=== PATIENT | female | born 1955 | race Caucasian/White ===

== ENCOUNTER 2019-09-07 14:30 | Inpatient (IN) | payer MEDICARE ==
[~2019-09-07] VITALS: Ht 154.9 cm; Wt 80.1 kg
[2019-09-07] MEDS ORDERED: ONDANSETRON HCL 4 MG/2 ML VIAL ONE ×2 (14:39→19:34)
[2019-09-07 15:19] LABS: BASOPHILS % (AUTO) 0.6 % (0.0-5.0); EOSINOPHILS % (AUTO) 0.1 % (0.0-8.0); HEMATOCRIT 47.9 % (36-48); LYMPHOCYTES % (AUTO) 11.3 % (21.0-51.0); MEAN CORPUSCULAR HEMOGLOBIN 28.1 pg (27.0-33.0); MEAN CORPUSCULAR HGB CONC 32.8 g/dL (32.0-36.0); MEAN CORPUSCULAR VOLUME 85.7 fL (79-99); MONOCYTES % (AUTO) 2.4 % (3.0-13.0); NEUTROPHILS % (AUTO) 85.1 % (40.0-77.0); PLATELET COUNT (AUTO) 273 K/uL (130-400); RED BLOOD CELL COUNT(AUTO) 5.59 MIL/uL (4.00-5.50); WHITE BLOOD COUNT (AUTO) 12.9 K/uL (4.8-10.8)
[2019-09-07 15:33] LABS: ALBUMIN 3.8 g/dL (3.5-5.0); BILIRUBIN,DIRECT 0.1 mg/dL (0.0-0.3); BILIRUBIN,TOTAL 0.6 mg/dL (0.2-1.0); CREATININE 0.8 mg/dL (0.5-1.5); TOTAL PROTEIN, SERUM 8.1 g/dL (6.0-8.3)
[2019-09-07 15:35] LABS: POTASSIUM 2.7 mmol/L (3.5-5.1)
[2019-09-07 18:23] LABS: APPEARANCE,URINE Clear (CLEAR); BILIRUBIN,URINE Negative (NEGATIVE); COLOR,URINE Yellow (YELLOW); GLUCOSE, URINE (UA) Negative (NEGATIVE); KETONES,URINE >=160 mg/dL (NEGATIVE); LEUKOCYTE ESTERASE ,URINE Negative (NEGATIVE); NITRATE,URINE Negative (NEGATIVE); OCCULT BLOOD,URINE Negative (NEGATIVE); PH,URINE 6.5 (5.0-8.0); PROTEIN,URINE Negative (NEGATIVE); UROBILINOGEN,URINE 0.2 mg/dL (0.2-1.0)
[2019-09-07 18:30] LABS: AMPHET/METH SCREEN,URINE NEGATIVE (NEGATIVE); BARBITURATE SCREEN, URINE NEGATIVE (NEGATIVE); BENZODIAZEPINES SCREEN,URINE NEGATIVE (NEGATIVE); CANNABINOID SCREEN,URINE POSITIVE (NEGATIVE); COCAINE SCREEN,URINE NEGATIVE (NEGATIVE); OPIATE SCREEN,URINE NEGATIVE (NEGATIVE); PHENCYCLIDINE SCREEN,URINE NEGATIVE (NEGATIVE)
[2019-09-07 18:46] LABS: BACTERIA,URINE Few /HPF (None Seen); SQUAMOUS EPITHELIAL CELL,UR Few /HPF (0-2)
[2019-09-07] MEDS ORDERED: SODIUM CHLORIDE 0.9% 1000ML 1,000 ML IV ONE (18:56)
[2019-09-07] MEDS ORDERED: POTASSIUM BICARB/CIT AC 25 MEQ TABLET.EFF ONE (19:34)
[2019-09-07] MEDS ORDERED: METRONIDAZOLE 500MG/100ML BAG 100 ML ONE (19:35)
[2019-09-07] MEDS: LEVOFLOXACIN 500 MG/D5W 100 ML 100 ML IV SCH (23:00)
[2019-09-08] VITALS (7 sets, daily range): BP systolic 103–138; BP diastolic 55–93
[2019-09-08] MEDS ORDERED: LEVOFLOXACIN 500 MG/D5W 100 ML 100 ML ONE (00:43)
[2019-09-08] MEDS ORDERED: LIDOCAINE HCL-MPF 1% 2ML VIAL IV PRN (01:30)
[2019-09-08] MEDS ORDERED: POTASSIUM CHLORIDE 10% ELIXIR 20 MEQ/15 ML UDCUP PO PRN (01:30)
[2019-09-08] MEDS ORDERED: SERT50TA PO (01:41)
[2019-09-08] MEDS ORDERED: POTASSIUM CHLORIDE 20 MEQ ERTAB PO ONE (01:43)
[2019-09-08] MEDS: 1/2 NORMAL SALINE 1,000 ML IV SCH ×3 (01:47→17:12)
[2019-09-08] MEDS ORDERED: METRONIDAZOLE 250MG/50ML 50 ML IV SCH (06:00)
[2019-09-08 06:50] LABS: HEMATOCRIT 38.9 % (36-48); MEAN CORPUSCULAR HEMOGLOBIN 29.1 pg (27.0-33.0); MEAN CORPUSCULAR HGB CONC 33.2 g/dL (32.0-36.0); MEAN CORPUSCULAR VOLUME 87.6 fL (79-99); PLATELET COUNT (AUTO) 221 K/uL (130-400); RED BLOOD CELL COUNT(AUTO) 4.44 MIL/uL (4.00-5.50); RED CELL DISTRIBUTION WIDTH 14.2 % (11.0-15.5); WHITE BLOOD COUNT (AUTO) 12.9 K/uL (4.8-10.8)
[2019-09-08] MEDS: ONDANSETRON HCL 4 MG/2 ML VIAL IVP PRN (09:32)
[2019-09-08 09:33] LABS: ALBUMIN 2.8 g/dL (3.5-5.0); CREATININE 0.6 mg/dL (0.5-1.5); TOTAL PROTEIN, SERUM 6.1 g/dL (6.0-8.3)
[2019-09-08] MEDS: ENOXAPARIN SODIUM 40 MG/0.4 ML SYRINGE SQ SCH (09:33)
[2019-09-08] MEDS: METRONIDAZOLE 250MG/50ML 50 ML IV SCH ×3 (09:33→19:55)
[2019-09-08] MEDS: PANTOPRAZOLE 40 MG/VIAL IVP SCH (09:33)
[2019-09-08 09:36] LABS: POTASSIUM 2.6 mmol/L (3.5-5.1)
[2019-09-08] MEDS: POTASSIUM CHLORIDE 20 MEQ ERTAB PO PRN ×4 (09:47→19:55)
[2019-09-08 09:50] LABS: BILIRUBIN,TOTAL 0.4 mg/dL (0.2-1.0)
[2019-09-08] MEDS: POTASSIUM CHLORIDE 20MEQ/100ML 100 ML IV PRN (11:23)
--- NOTE | 2019-09-08 16:03 | NUR ---
cm note met with patient and states resides at home alone, independent with adls and ambulation, no provider. pt drives. dc plan is back to home. sister can assist as needed. Addendum: 09/08/19 at 1609 by JUSTIN FERNANDEZ CM Amended: Links added.
--- NOTE | 2019-09-08 22:00 | NUR ---
Called DR. Castaneda to report pt wants sleeping pill medication with an order to give Ambien 5mg po QHS prn - carried out.
[2019-09-08] MEDS ORDERED: ZOLPIDEM TARTRATE 5 MG TAB ONE (22:10)
[2019-09-08] MEDS: LEVOFLOXACIN 500 MG/D5W 100 ML 100 ML IV SCH (22:11)
[2019-09-08] MEDS ORDERED: ZOLPIDEM TARTRATE 5 MG TAB PO PRN (22:15)
[2019-09-09] MEDS: METRONIDAZOLE 250MG/50ML 50 ML IV SCH ×4 (00:23→20:27)
[2019-09-09] MEDS: 1/2 NORMAL SALINE 1,000 ML IV SCH ×4 (01:01→21:43)
[2019-09-09 04:00] VITALS: BP 129/70
[2019-09-09 05:17] LABS: BASOPHILS % (AUTO) 0.3 % (0.0-5.0); EOSINOPHILS % (AUTO) 0.4 % (0.0-8.0); HEMATOCRIT 38.3 % (36-48); LYMPHOCYTES % (AUTO) 25.8 % (21.0-51.0); MEAN CORPUSCULAR HEMOGLOBIN 28.2 pg (27.0-33.0); MEAN CORPUSCULAR HGB CONC 31.3 g/dL (32.0-36.0); MEAN CORPUSCULAR VOLUME 89.9 fL (79-99); MONOCYTES % (AUTO) 7.5 % (3.0-13.0); NEUTROPHILS % (AUTO) 65.5 % (40.0-77.0); PLATELET COUNT (AUTO) 179 K/uL (130-400); RED BLOOD CELL COUNT(AUTO) 4.26 MIL/uL (4.00-5.50); RED CELL DISTRIBUTION WIDTH 14.6 % (11.0-15.5); WHITE BLOOD COUNT (AUTO) 7.6 K/uL (4.8-10.8)
[2019-09-09 05:32] LABS: CREATININE 0.6 mg/dL (0.5-1.5); POTASSIUM 3.7 mmol/L (3.5-5.1)
[2019-09-09] MEDS: POTASSIUM CHLORIDE 20 MEQ ERTAB PO PRN ×2 (05:37→10:17)
[2019-09-09] MEDS: HYDROMORPHONE 1 MG/1 ML AMP IVP PRN ×3 (05:47→22:06)
--- NOTE | 2019-09-09 06:35 | NUR ---
STEVEN GOLDSMITH rounded: Discharge home today with the ff prescriptions: 1. zofran 4 mg po qid prn for nausea 2. protonix 40 mg po OD for dyspepsia 3. continue home medications 4. diet: soft solid 5. follow up after a week.
[2019-09-09 08:00] VITALS: BP 133/82
[2019-09-09] MEDS: ENOXAPARIN SODIUM 40 MG/0.4 ML SYRINGE SQ SCH (10:16)
[2019-09-09] MEDS: PANTOPRAZOLE 40 MG/VIAL IVP SCH (10:16)
[2019-09-09] MEDS: ONDANSETRON HCL 4 MG/2 ML VIAL IVP PRN (10:18)
[2019-09-09 11:36] VITALS: BP 110/75
[2019-09-09] MEDS ORDERED: COMPOUND IV MISC 1 EACH IVSOLN MISC PRN (12:00)
[2019-09-09 16:00] VITALS: BP 139/83
--- NOTE | 2019-09-09 16:33 | NUR ---
Called to follow up with Shaye at Dr. Castaneda's office regarding patient's complaint of nausea, heartburn and abdominal cramping and if patient is clear for discharge with presenting symptoms. Shaye notified staff readiness officer and stated that Dr. Castaneda will be calling back shortly.
[2019-09-09 20:00] VITALS: BP 129/81
[2019-09-09] MEDS: LEVOFLOXACIN 500 MG/D5W 100 ML 100 ML IV SCH (21:43)
[2019-09-10] VITALS (7 sets, daily range): BP systolic 109–151; BP diastolic 62–92
[2019-09-10] MEDS: METRONIDAZOLE 250MG/50ML 50 ML IV SCH ×4 (00:34→20:15)
[2019-09-10] MEDS: 1/2 NORMAL SALINE 1,000 ML IV SCH (03:35)
[2019-09-10 04:38] LABS: CREATININE 0.6 mg/dL (0.5-1.5); POTASSIUM 3.2 mmol/L (3.5-5.1)
[2019-09-10] MEDS: POTASSIUM CHLORIDE 20 MEQ ERTAB PO PRN ×3 (05:36→12:24)
--- NOTE | 2019-09-10 06:53 | NUR ---
STEVEN GOLDSMITH rounded: Seen and visited pt. Explained the significance of GI consult. No new orders noted. Addendum: 09/10/19 at 0737 by KELLY MOHAN RN RN addendum: D/C IVF and changed to ANA.
[2019-09-10] MEDS: PANTOPRAZOLE 40 MG/VIAL IVP SCH (09:05)
[2019-09-10] MEDS: ENOXAPARIN SODIUM 40 MG/0.4 ML SYRINGE SQ SCH (09:07)
--- NOTE | 2019-09-10 11:26 | NUR ---
1120 IM Letter given to patient by KATIE Miller. I faxed IM Letter to [phone] with note; pt unable to sign, on droplet isolation, witness signature by Paul(katie). I placed IM Letter in chart under consent tab
[2019-09-10] MEDS: HYDROMORPHONE 1 MG/1 ML AMP IVP PRN ×2 (14:29→19:45)
--- NOTE | 2019-09-10 17:46 | NUR ---
Called Dr. Hendrix's office to follow up with consultation. Crystal to page Dr. Hendrix.
--- NOTE | 2019-09-10 18:05 | NUR ---
Reviewed diagnosis symptoms with Dr. Hendrix and history of ulcers/EGD. Received telephone order for EGD tomorrow with Dr. Hendrix. Hold antiplatelets prior to procedure. NPO after midnight.
[2019-09-10] MEDS: LEVOFLOXACIN 500 MG/D5W 100 ML 100 ML IV SCH (22:40)
[2019-09-10] MEDS ORDERED: HYDROMORPHONE HCL 2 MG/ML VIAL ONE (22:50)
[2019-09-11] VITALS (21 sets, daily range): BP systolic 113–152; BP diastolic 59–97
[2019-09-11] MEDS: METRONIDAZOLE 250MG/50ML 50 ML IV SCH ×2 (00:57→06:25)
[2019-09-11] MEDS: HYDROMORPHONE HCL 2 MG/ML VIAL IVP PRN ×7 (00:58→21:47)
[2019-09-11 05:46] LABS: HEMATOCRIT 41.9 % (36-48); MEAN CORPUSCULAR HEMOGLOBIN 28.2 pg (27.0-33.0); MEAN CORPUSCULAR HGB CONC 32.7 g/dL (32.0-36.0); MEAN CORPUSCULAR VOLUME 86.2 fL (79-99); PLATELET COUNT (AUTO) 194 K/uL (130-400); RED BLOOD CELL COUNT(AUTO) 4.86 MIL/uL (4.00-5.50); RED CELL DISTRIBUTION WIDTH 13.9 % (11.0-15.5); WHITE BLOOD COUNT (AUTO) 8.5 K/uL (4.8-10.8)
[2019-09-11 05:56] LABS: INR 1.03 (0.85-1.15); PARTIAL THROMBOPLASTIN TIME 27.7 SEC (26.3-35.5); PROTHROMBIN TIME 11.1 SEC (9.6-11.6)
[2019-09-11 06:09] LABS: CREATININE 0.6 mg/dL (0.5-1.5); POTASSIUM 3.8 mmol/L (3.5-5.1)
[2019-09-11 06:11] LABS: LYMPHOCYTES % (MANUAL) 25 % (22-44); MONOCYTES % (MANUAL) 3 % (2-9); SEGMENTED NEUTROPHILS % 72 % (40-70)
[2019-09-11 06:12] LABS: MAN.DIFF COMMENT-IMPRESSION MANUAL DIFFERENTIAL
[2019-09-11 06:13] LABS: PLATELET MORPHOLOGY COMMENT ADEQUATE
[2019-09-11] MEDS ORDERED: PROPOFOL 10 MG/ML 20ML VIAL IV ONE (06:53)
--- NOTE | 2019-09-11 08:30 | NUR ---
BACK FROM GI LAB, S/P EGD, FOUND GASTRITIS, HAS NOW BEEN SUSI. FOR COLONOSCOPY IN AM. PREP TO START [id number] HRS. TODAY. CLEAR LIQUID DIET ORDERED FOR NOW. BP 131/80, HR. 59, RR, 20. TEMP 98.
[2019-09-11] MEDS: ENOXAPARIN SODIUM 40 MG/0.4 ML SYRINGE SQ SCH (09:00)
--- NOTE | 2019-09-11 09:00 | NUR ---
KIRAN DOAN, S/P FRACISCO.THIS AM
[2019-09-11] MEDS: PANTOPRAZOLE 40 MG/VIAL IVP SCH ×2 (09:45→09:46)
--- NOTE | 2019-09-11 11:10 | NUR ---
new iv site started, 20g lt. inner forearm.
[2019-09-11] MEDS ORDERED: PEG 3350/NA SULF,BICARB,CL/KCL 4000 ML SOLN PO SCH (15:00)
--- NOTE | 2019-09-11 15:00 | NUR ---
STARTED ON [employer] PREP NOW.
[2019-09-11] MEDS: ONDANSETRON HCL 4 MG/2 ML VIAL IVP PRN (21:45)
[2019-09-12] VITALS (21 sets, daily range): BP systolic 104–177; BP diastolic 64–96
--- NOTE | 2019-09-12 07:05 | NUR ---
TO GI LAB NOW FOR SUSI. COLONOSCOPY. CONSENT HAS BEEN SIGNED AND PT. HAS BEEN NPO.
[2019-09-12] MEDS: SODIUM CHLORIDE 0.9% 1000ML 1,000 ML IV SCH ×2 (07:10→21:18)
[2019-09-12] MEDS ORDERED: PROPOFOL 10 MG/ML 20ML VIAL IV ONE (07:37)
[2019-09-12] MEDS ORDERED: LIDOCAINE HCL-MPF 2% 5ML VIAL ONE (07:37)
[2019-09-12] MEDS: ONDANSETRON HCL 4 MG/2 ML VIAL IVP PRN (08:07)
[2019-09-12] MEDS ORDERED: METOCLOPRAMIDE 10 MG/2 ML VIAL ONE (08:14)
--- NOTE | 2019-09-12 08:20 | NUR ---
BACK FROM GI LAB, COLONOSCOPY DONE, AWAKE AND WITH A LITTLE NAUSEA, GIVEN REGLAN IN GI. DIET ORDERED , STATES NOT READY O EAT.
[2019-09-12] MEDS: HYDROMORPHONE HCL 2 MG/ML VIAL IVP PRN ×3 (08:55→23:26)
[2019-09-12] MEDS: PANTOPRAZOLE 40 MG/VIAL IVP SCH (08:55)
--- NOTE | 2019-09-12 08:55 | NUR ---
ASKING FOR PAIN MEDICATION.
[2019-09-12] MEDS: ENOXAPARIN SODIUM 40 MG/0.4 ML SYRINGE SQ SCH (08:58)
[2019-09-12 09:17] LABS: BASOPHILS % (AUTO) 0.5 % (0.0-5.0); EOSINOPHILS % (AUTO) 0.3 % (0.0-8.0); HEMATOCRIT 44.5 % (36-48); LYMPHOCYTES % (AUTO) 17.5 % (21.0-51.0); MEAN CORPUSCULAR HEMOGLOBIN 28.9 pg (27.0-33.0); MEAN CORPUSCULAR VOLUME 87.6 fL (79-99); MONOCYTES % (AUTO) 5.5 % (3.0-13.0); NEUTROPHILS % (AUTO) 75.6 % (40.0-77.0); PLATELET COUNT (AUTO) 200 K/uL (130-400); RED BLOOD CELL COUNT(AUTO) 5.08 MIL/uL (4.00-5.50); RED CELL DISTRIBUTION WIDTH 13.9 % (11.0-15.5); WHITE BLOOD COUNT (AUTO) 8.6 K/uL (4.8-10.8)
[2019-09-12 09:31] LABS: ALBUMIN 3.5 g/dL (3.5-5.0); BILIRUBIN,TOTAL 0.6 mg/dL (0.2-1.0); CREATININE 0.5 mg/dL (0.5-1.5); TOTAL PROTEIN, SERUM 7.1 g/dL (6.0-8.3)
[2019-09-12 09:34] LABS: POTASSIUM 2.8 mmol/L (3.5-5.1)
[2019-09-12] MEDS: POTASSIUM CHLORIDE 20MEQ/100ML 100 ML IV PRN (10:53)
--- NOTE | 2019-09-12 11:30 | NUR ---
CONTINUES TO C/O OF SOME NAUSEA.
[2019-09-12] MEDS: POTASSIUM CHLORIDE 20 MEQ ERTAB PO PRN ×4 (15:12→17:34)
--- NOTE | 2019-09-12 15:45 | NUR ---
Nutrition Intervention: Nutrition screen based on LOS x 5 days. Pt. S/P Colonoscopy(09/12/2019) and S/P EGD(09/11/2019). Pt. on Clear Liquids. As per nurse Tsering, pt. with poor p.o.intake and +Nausea. Labs reviewed(K 2.8, Alb 3.5). SR-19, elastic. LBM: 09/11/2019, loose. BMI: 33.3, Obesity Grade 1. Recommendations: 1) When medically feasible, rec. advance diet as tolerated to GI Soft [place]. 2) Rec. Ensure Clear BID with B'fast and dinner meals due to poor p.o. intake. 3) Continue to monitor pt's nutritional status. 4) Consult RD as nutrition concerns arise. Addendum: 09/12/19 at [address] Amended: Links added.
[2019-09-13] MEDS: HYDROMORPHONE HCL 2 MG/ML VIAL IVP PRN ×2 (01:25→04:05)
[2019-09-13 04:00] VITALS: BP 125/83
[2019-09-13 06:37] LABS: HEMATOCRIT 46.5 % (36-48); MEAN CORPUSCULAR HEMOGLOBIN 28.4 pg (27.0-33.0); MEAN CORPUSCULAR HGB CONC 32.3 g/dL (32.0-36.0); MEAN CORPUSCULAR VOLUME 87.9 fL (79-99); PLATELET COUNT (AUTO) 225 K/uL (130-400); RED BLOOD CELL COUNT(AUTO) 5.29 MIL/uL (4.00-5.50); RED CELL DISTRIBUTION WIDTH 14.3 % (11.0-15.5); WHITE BLOOD COUNT (AUTO) 9.3 K/uL (4.8-10.8)
[2019-09-13 07:11] LABS: CREATININE 0.6 mg/dL (0.5-1.5); POTASSIUM 4.1 mmol/L (3.5-5.1)
[2019-09-13 08:18] VITALS: BP 111/79
--- NOTE | 2019-09-13 08:30 | NUR ---
PAIN PT C/O OF PAIN TO LOWER LEFT SIDE BACK AND LEG. 1-10 ON PAIN SCALE (10) TYLENOL 650 MG ORDERED
--- NOTE | 2019-09-13 08:30 | NUR ---
DIET PT TOLERATED BREAKFAST WELL ATE 75%. NO N/V OR PAIN TO ABDOMINAL AREA.
[2019-09-13] MEDS: PANTOPRAZOLE 40 MG/VIAL IVP SCH (08:53)
[2019-09-13] MEDS: ENOXAPARIN SODIUM 40 MG/0.4 ML SYRINGE SQ SCH (08:59)
[2019-09-13] MEDS ORDERED: ACETAMINOPHEN 325 MG TAB PO PRN (09:00)
[2019-09-13] MEDS ORDERED: ACETAMINOPHEN 325 MG TAB ONE (09:02)
--- NOTE | 2019-09-13 09:15 | NUR ---
REASSESS PAIN PT STATES PAIN DECREASED 0-10 ON PAIN SCALE (3)
--- NOTE | 2019-09-13 09:15 | NUR ---
PT. SITTING IN CHAIR RESTING COMFORTABLY.
[2019-09-13 11:37] VITALS: BP 112/71
--- NOTE | 2019-09-13 13:45 | NUR ---
PT LEFT VIA WHEELCHAIR IN PVT CARE V/S STABLE AND NO COMPLICATIONS UPON D/C. FU APPT. WITH DR PALM VIA PHONE NEXT WEEK SCHEDULED AND PT AWARE TO CALL PRIMARY MD FOR F/U APPT 2-3 DAYS.
== END 2019-09-13 13:00 | disposition home or self-care (01) | DRG 392 ==
LOC: EDH 14:30 → EDHIP 20:51 → OBSVTOIN 20:51 → 3CH 09-08 01:26
PROVIDERS: ADMIT Internal Medicine; ATTEND Internal Medicine
PROC: 0DB68ZX Excision of Stomach, Via Natural or Artificial Opening Endoscopic, Diagnostic (ICD-10-PCS; principal; 2019-09-11)
PROC: 0DBK8ZZ Excision of Ascending Colon, Via Natural or Artificial Opening Endoscopic (ICD-10-PCS; 2019-09-12)
PROC: 0DBN8ZZ Excision of Sigmoid Colon, Via Natural or Artificial Opening Endoscopic (ICD-10-PCS; 2019-09-12)
DX: K29.00 Acute gastritis without bleeding (principal); K52.9 Noninfective gastroenteritis and colitis, unspecified; E86.0 Dehydration; J44.9 Chronic obstructive pulmonary disease, unspecified; I10 Essential (primary) hypertension; G89.29 Other chronic pain; Z79.899 Other long term (current) drug therapy; K63.5 Polyp of colon; D72.829 Elevated white blood cell count, unspecified; K64.8 Other hemorrhoids; K57.90 Diverticulosis of intestine, part unspecified, without perforation or abscess without bleeding
CPT/HCPCS: 36415; 43239; 45380; 74176; 80048; 80053; 80076; 80305; 81001; 82150; 82948; 83690; 85025; 85027; 85610; 85730; 88305; 88342; 93005; A4606; C9113; G0378; J1170; J1650; J1956; J2405; J2704; J2765; J3480; J3490; J7030

== ENCOUNTER → 2019-11-12 | Outpatient (CLI) | payer MEDICARE ==
[~2019-11-12] MED LIST: SERT50TA PO
== END | disposition home or self-care (01) ==
LOC: RAH 10:04
PROVIDERS: ATTEND Internal Medicine
DX: S32.058A Other fracture of fifth lumbar vertebra, initial encounter for closed fracture (principal); N20.0 Calculus of kidney; R10.9 Unspecified abdominal pain; R63.4 Abnormal weight loss; K76.0 Fatty (change of) liver, not elsewhere classified; K44.9 Diaphragmatic hernia without obstruction or gangrene; X58.XXXA Exposure to other specified factors, initial encounter; Y93.89 Activity, other specified; Y92.89 Other specified places as the place of occurrence of the external cause; Y99.8 Other external cause status
CPT/HCPCS: 74176

== ENCOUNTER 2022-10-30 22:36 | Emergency (ER) | payer MEDICARE, OTHER ==
[~2022-10-30] VITALS: Ht 154.9 cm; Wt 88.9 kg
[2022-10-30] MEDS ORDERED: ONDANSETRON 4MG INJ IVP ONE (23:30)
[2022-10-30] MEDS ORDERED: 0.9%NACL 1000ML 1,000 ML IV ONE (23:30)
[2022-10-30 23:36] LABS: BASOPHILS % (AUTO) 0.5 % (0.0-5.0); HEMATOCRIT 43.8 % (36-48); LYMPHOCYTES % (AUTO) 12.7 % (21.0-51.0); MEAN CORPUSCULAR HEMOGLOBIN 29.2 pg (27.0-33.0); MEAN CORPUSCULAR HGB CONC 33.6 g/dL (32.0-36.0); MEAN CORPUSCULAR VOLUME 87.1 fL (79-99); MONOCYTES % (AUTO) 3.2 % (3.0-13.0); NEUTROPHILS % (AUTO) 83.1 % (40.0-77.0); PLATELET COUNT (AUTO) 286 K/uL (130-400); RED BLOOD CELL COUNT(AUTO) 5.03 MIL/uL (4.00-5.50); RED CELL DISTRIBUTION WIDTH 13.4 % (11.0-15.5); WHITE BLOOD COUNT (AUTO) 11.9 K/uL (4.8-10.8)
[2022-10-30 23:38] LABS: APPEARANCE,URINE CLEAR (CLEAR); BILIRUBIN,URINE NEGATIVE (NEGATIVE); COLOR,URINE LIGHT-YELLOW (YELLOW); GLUCOSE, URINE (UA) 30 mg/dL (NEGATIVE); KETONES,URINE 40 mg/dL (NEGATIVE); LEUKOCYTE ESTERASE ,URINE NEGATIVE Leu/uL (NEGATIVE); NITRATE,URINE NEGATIVE (NEGATIVE); OCCULT BLOOD,URINE LARGE (NEGATIVE); PH,URINE 6.5 (5.0-8.0); PROTEIN,URINE 10 mg/dL (NEGATIVE); UROBILINOGEN,URINE 0.2 mg/dL (0.2-1.0)
[2022-10-30 23:43] LABS: MUCUS,URINE RARE LPF (None Seen); RBC,URINE TNTC /HPF (0-1); SQUAMOUS EPITHELIAL CELL,UR RARE /HPF (0-2); WBC,URINE 0-1 /HPF (0-1)
[2022-10-30 23:51] LABS: CREATININE 0.7 mg/dL (0.5-1.5)
[2022-10-30 23:57] LABS: ALBUMIN 4.1 g/dL (3.5-5.0); TOTAL PROTEIN, SERUM 7.6 g/dL (6.0-8.3)
[2022-10-31] MEDS ORDERED: IOHEXOL 350 MG/ML 100ML INFUS..BTL IV ONE (02:31)
[2022-10-31] MEDS ORDERED: MORPHINE 4 MG SYG IVP ONE ×2 (03:30)
[2022-10-31 04:21] VITALS: BP 156/65
[2022-10-31] MEDS ORDERED: ONDA-104 PO (04:55)
[2022-10-31] MEDS ORDERED: HYDR-4060 PO (04:55)
[2022-10-31] MEDS ORDERED: TAMS-1 PO (04:55)
[2022-10-31] MEDS ORDERED: IBUP-1493 PO (04:55)
== END 2022-10-31 05:08 | disposition home or self-care (01) ==
LOC: EDH 22:36
DX: N20.0 Calculus of kidney (principal); F41.9 Anxiety disorder, unspecified; F32.A Depression, unspecified; E78.00 Pure hypercholesterolemia, unspecified; Z79.899 Other long term (current) drug therapy
CPT/HCPCS: 99285; 96374; 96361; 96375; 84484; 80053; 83690; 85025; 81001; 36415; 93005; 74177; 96376; J7030; J2405; J2270 ×2; Q9967